=== PATIENT | male | born 1980 | race Native Hawaiian/Other Pacific Islander ===

== ENCOUNTER 2016-10-24 08:21 | Day surgery (SDC) | payer OTHER ==
[~2016-10-24] VITALS: Ht 175.3 cm; Wt 90.7 kg
== END 2016-10-24 11:49 | disposition home or self-care (01) ==
LOC: OR 08:21
PROC: 0D738ZZ Dilation of Lower Esophagus, Via Natural or Artificial Opening Endoscopic (ICD-10-PCS; principal; 2016-10-24)
DX: K22.2 Esophageal obstruction (principal); K21.9 Gastro-esophageal reflux disease without esophagitis; R13.10 Dysphagia, unspecified
CPT/HCPCS: J2001; J2704